=== PATIENT | male | born 1985 | race Caucasian/White ===

== ENCOUNTER 2021-04-01 01:28 | Emergency (ER) | payer OTHER ==
[~2021-04-01] VITALS: Ht 165.1 cm; Wt 59.0 kg
[2021-04-01] MEDS ORDERED: KETOROLAC 15MG/ML VIAL IM ONE (02:15)
[2021-04-01] MEDS ORDERED: ASPIRIN 325MG EC TABLET PO ONE (02:15)
[2021-04-01 02:33] LABS: BASOPHILS % 0.7 % (0.0-2.0); EOSINOPHILS % 2.5 % (0.0-5.0); HEMATOCRIT. 35.3 % (42.0-52.0); HEMOGLOBIN. 11.1 g/dL (14.0-18.0); LYMPHOCYTES % 44.9 % (20.0-50.0); MEAN CORPUSCULAR HEMOGLOBIN 19.5 pg (28.0-32.0); MEAN PLATELET VOLUME 9.6 fl (7.4-10.4); MONOCYTES % 12.6 % (2.0-8.0); NEUTROPHILS % 39.3 % (40.0-76.0); PLATELET 164 x1000/uL (130-400); RED BLOOD CELL COUNT 5.69 mill/uL (4.7-6.1); RED CELL DISTRIBUTION WIDTH 15.4 % (11.6-14.6)
[2021-04-01 02:40] LABS: CHLORIDE 107 mEq/L (98-107)
[2021-04-01 02:44] LABS: ETHANOL BLOOD < 10 mg/dL
[2021-04-01 02:50] LABS: CREATINE KINASE 155 IU/L (39-308)
[2021-04-01] MEDS ORDERED: POTASSIUM CHLORIDE 20MEQ TABLET SR PO NR (03:30)
[2021-04-01 06:37] VITALS: BP 114/68
[2021-04-01 07:17] LABS: PLATELET ESTIMATE NORMAL
== END 2021-04-01 04:55 | disposition home or self-care (01) ==
LOC: ER 01:49
DX: U07.1 COVID-19 (principal); R07.89 Other chest pain
CPT/HCPCS: 36415; 71045; 80053; 80320; 82550; 84484; 85025; 93005; 96372; 99285; J1885; G0480